=== PATIENT | female | born 1965 | race Caucasian/White ===

== ENCOUNTER 2021-04-14 12:33 | Outpatient (CLI) | payer OTHER ==
[~2021-04-14 12:33] MED LIST: LORA-702 PO
== END 2021-04-14 23:59 | disposition home or self-care (01) ==
LOC: CFH 12:33
PROVIDERS: ATTEND Orthopaedic Surgery
DX: Z12.2 Encounter for screening for malignant neoplasm of respiratory organs (principal); J98.4 Other disorders of lung; I25.10 Atherosclerotic heart disease of native coronary artery without angina pectoris; Z87.891 Personal history of nicotine dependence
CPT/HCPCS: 71271